=== PATIENT | female | born 1950 ===

== ENCOUNTER → 2020-10-20 | Outpatient (CLI) | payer MEDICARE | END | disposition home or self-care (01) | LOC: LAB 08:27 → LAB SHORT 08:27 | DX: D48.5 Neoplasm of uncertain behavior of skin (principal) | CPT/HCPCS: 88305 ==

== ENCOUNTER → 2022-08-09 | Outpatient (CLI) | payer MEDICARE, OTHER | END | disposition home or self-care (01) | LOC: LAB 06:30 → LAB SHORT 06:30 | DX: R19.7 Diarrhea, unspecified (principal) | CPT/HCPCS: 87177; 87209 ==

== ENCOUNTER → 2022-10-13 | Outpatient (CLI) | payer MEDICARE | END | disposition home or self-care (01) | LOC: LAB SHORT 11:38 | DX: A07.3 Isosporiasis (principal) | CPT/HCPCS: 87177; 87209 ==

== ENCOUNTER → 2023-06-12 | Outpatient (CLI) | payer MEDICARE | END | disposition home or self-care (01) | LOC: LAB 09:07 → LAB SHORT 09:07 | DX: Z09 Encounter for follow-up examination after completed treatment for conditions other than malignant neoplasm (principal); Z86.19 Personal history of other infectious and parasitic diseases | CPT/HCPCS: 87177; 87209 ==

== ENCOUNTER → 2023-07-08 | Outpatient (CLI) | payer MEDICARE | LOC: LAB 14:10 → LAB SHORT 14:10 | DX: D51.0 Vitamin B12 deficiency anemia due to intrinsic factor deficiency (principal); E55.9 Vitamin D deficiency, unspecified; F03.A4 Unspecified dementia, mild, with anxiety | CPT/HCPCS: 82306; 82607; 84443 ==

== ENCOUNTER → 2023-07-21 | Outpatient (CLI) | payer MEDICARE | LOC: LAB SHORT 16:22 → LAB 16:22 | DX: Z86.19 Personal history of other infectious and parasitic diseases (principal) | CPT/HCPCS: 87177; 87209 ==